=== PATIENT | female | born 1965 | race Caucasian/White ===

== ENCOUNTER 2020-09-05 15:07 | Outpatient (CLI) | payer OTHER, SELFPAY ==
--- NOTE | 2020-09-05 15:15 | MM_ITS ---
WS: [id number] BILATERAL DIGITAL SCREENING MAMMOGRAPHY WITH CAD CLINICAL INFORMATION: SCREENING HISTORY: Screening mammogram. No current complaints. COMPARISON: TECHNIQUE: Bilateral CC and MLO views. FINDINGS: The breasts are composed of heterogeneous fibroglandular density tissue, which can limit the detectio n of small underlying mass lesions. Long-standing stability of the dense breast tissue inner right br east with slight spiculation No suspicious mass, asymmetry, calcifications, or architectural distorti on. No evidence of malignancy. Punctate and lucent centered calcifications. MM/[place] [id number] IMPRESSION: BI-RADS: 2-Benign FOLLOW UP: 1 Year Follow-up Recommend return to annual screening mammography.
== END 2020-09-05 15:08 | disposition home or self-care (01) ==
LOC: RADSHAW 15:13
PROVIDERS: PCP Nurse Practitioner Family; Visit Provider Obstetrics & Gynecology
DX: Z12.31 Encounter for screening mammogram for malignant neoplasm of breast (principal)
CPT/HCPCS: 77067

== ENCOUNTER → 2021-08-24 15:28 | Outpatient (BNVA) | payer OTHER, SELFPAY | PROVIDERS: PCP Nurse Practitioner Family; Visit Provider Obstetrics & Gynecology | DX: Z12.4 Encounter for screening for malignant neoplasm of cervix (principal) | CPT/HCPCS: 87624 ==

== ENCOUNTER 2021-09-14 14:07 | Outpatient (CLI) | payer OTHER, SELFPAY ==
--- NOTE | 2021-09-14 14:18 | MM_ITS ---
WS: [id number] SCREENING DIGITAL MAMMOGRAM WITH CAD HISTORY: SCREENING COMPARISON: 09/05/2020, 07/15/2019 and 06/23/2018 Bilateral CC and MLO views submitted. Computer aided detection analyzed. Breast composition: The breasts are heterogeneously dense, which may obscure small masses. Area of ve ry subtle architectural distortion in the RIGHT breast at 1:00. Associated lucent centered calcificat ion also near the distortion. There has been mild architectural distortion on prior mammograms also b ut it appears more prominent today. MM/[place] [id number] IMPRESSION: BI-RADS: 0-Incomplete: Need additional imaging evaluation FOLLOW UP: Need Additional Imaging RIGHT breast: Spot compression views (CC and MLO). True ML. Ultrasound to follo w if abnormality persists.
== END 2021-09-14 14:08 | disposition home or self-care (01) ==
LOC: RADSHAW 14:15
PROVIDERS: PCP Nurse Practitioner Family; Visit Provider Nurse Practitioner Family
DX: Z12.31 Encounter for screening mammogram for malignant neoplasm of breast (principal)
CPT/HCPCS: 77067

== ENCOUNTER 2021-09-21 10:16 | Outpatient (CLI) | payer OTHER, SELFPAY ==
--- NOTE | 2021-09-21 10:30 | US_ITS ---
WS: [id number] ADDITIONAL VIEWS RIGHT BREAST RIGHT breast ultrasound, limited HISTORY: Inconclusive diagnostic mammogram. COMPARISON: 09/14/2021, 09/05/2020 and 07/15/2019 Compression views right CC and MLO projection. True ML also submitted. Focal area of architectural di stortion in the central calcifications persist in the anterior RIGHT breast near 12:00. This is an ar ea of increased density. Otherwise negative. RIGHT breast ultrasound, limited. Ultrasound is directed to the 12:00 axis. At 12:00 there is a hypoechoic irregular mass with posterio r shadowing. This mass is taller than it is wide and 1 cm from the nipple. Mass measures 0.7 x 1.2 x 1.0 cm. There is mild peripheral increased vascularity. No axillary adenopathy. US/US breast RT limited* [id number] IMPRESSION: BI-RADS: 5-Highly Suggestive of Malignancy FOLLOW-UP: Biopsy Recommended Ultrasound-guided biopsy recommended RIGHT breast mass at 12:00. Notified ELYSIA Syed at 09/21/2021 2:38 PM. Unable to speak to the nurse practitioner. Left message on the answering service.
--- NOTE | 2021-09-21 11:00 | MM_ITS ---
WS: [id number] ADDITIONAL VIEWS RIGHT BREAST RIGHT breast ultrasound, limited HISTORY: Inconclusive diagnostic mammogram. COMPARISON: 09/14/2021, 09/05/2020 and 07/15/2019 Compression views right CC and MLO projection. True ML also submitted. Focal area of architectural di stortion in the central calcifications persist in the anterior RIGHT breast near 12:00. This is an ar ea of increased density. Otherwise negative. RIGHT breast ultrasound, limited. Ultrasound is directed to the 12:00 axis. At 12:00 there is a hypoechoic irregular mass with posterio r shadowing. This mass is taller than it is wide and 1 cm from the nipple. Mass measures 0.7 x 1.2 x 1.0 cm. There is mild peripheral increased vascularity. No axillary adenopathy. MM/[place] [id number] IMPRESSION: BI-RADS: 5-Highly Suggestive of Malignancy FOLLOW-UP: Biopsy Recommended Ultrasound-guided biopsy recommended RIGHT breast mass at 12:00. Notified ELYSIA Syed at 09/21/2021 2:38 PM. Unable to speak to the nurse practitioner. Left message on the answering service.
== END 2021-09-21 10:17 | disposition home or self-care (01) ==
LOC: RAD 10:21
PROVIDERS: PCP Nurse Practitioner Family; Visit Provider Nurse Practitioner Family
DX: R92.8 Other abnormal and inconclusive findings on diagnostic imaging of breast (principal); N63.25 Unspecified lump in the left breast, overlapping quadrants
CPT/HCPCS: 76642; 77065

== ENCOUNTER 2021-10-15 12:55 | Outpatient (CLI) | payer OTHER, SELFPAY ==
--- NOTE | 2021-10-15 13:30 | US_ITS ---
WS: [id number] ULTRASOUND-GUIDED RIGHT BREAST BIOPSY CLINICAL INFORMATION: R92.8 - Other abnormal and inconclusive findings on diagn... FINDINGS: The procedure including risks, benefits, and complications were discussed with the patient who agreed to proceed. Using sterile technique patient was prepped and draped in the usual sterile fashion. Aft er 1% lidocaine utilizing real-time ultrasound guidance 5 14-gauge cores were obtained of the right b reast lesion at the 12 o'clock position. Subsequently a titanium clip was placed in the biopsy cavity . No immediate complications. Pathology demonstrates A. Breast, right, mass, ultrasound-guided biopsy: - INVASIVE DUCTAL CARCINOMA. - Beth Hauser grade 1 (score 3). - Breast prognostic profile has been performed and will be reported separately. US/[place] [id number] IMPRESSION: 1. Uncomplicated ultrasound-guided right breast biopsy. 2. The pathology demonstrates INVASIVE DUCTAL CARCINOMA. See pathology report for additional detail. 3. Recommend Breast surgery consultation for further evaluation. BI-RADS: 6-Known Biopsy-Proven Malignancy FOLLOW UP: Surgical Biopsy Recommended
[2021-10-22 14:35] LABS: Miscellaneous Test See Scanned Lab Rpt
== END 2021-10-15 12:56 | disposition home or self-care (01) ==
PROVIDERS: PCP Nurse Practitioner Family; Visit Provider Nurse Practitioner
DX: R92.8 Other abnormal and inconclusive findings on diagnostic imaging of breast (principal); N63.10 Unspecified lump in the right breast, unspecified quadrant; C50.911 Malignant neoplasm of unspecified site of right female breast
CPT/HCPCS: 19083; 88305; 88361; 88367; 88374

== ENCOUNTER 2021-10-22 14:37 | Outpatient (CLI) | payer OTHER, SELFPAY ==
--- NOTE | 2021-10-22 16:24 | ONC CON_ITS ---
Dr. Bonner New Patient Note Patient: Oneyda Saez Unit #: [id number]: [id number] Dicatated By: Megha Bonner M.D.Date of Visit: Oct 22, 2021 Onc MED New Patient/Consult Referring Physician: Dr. Adin Crenshaw M.D. History of Present Illness: Ms. Oneyda Saez, is a 56-year-old female with no significant past medical history, during her routine follow-up mammogram exam which was done on September 14, 2021, found to have a subtle architectural distortion in the right breast at 1 o'clock position, follow-up ultrasound right breast done on September 21, 2021 shows 1.2 x 1 x 0.7 cm mass at 12 o'clock position, 1 cm from the nipple, no axillary lymphadenopathy, patient underwent ultrasound-guided biopsy right breast mass on October 15, 2021 which confirmed invasive ductal carcinoma grade 1, ER 98% positive, [place] 100% positive, Ki-67 5%, HER2/alexandrea pending Patient denies any nipple discharge, denies any overlying skin changes, denies any right axillary lymphadenopathy, denies any new bony pains. Denies any weight loss, denies any headaches., No family history of breast cancer, no history of hormone supplement, menarche at age 17, menopause at age 52. Patient denies smoking or alcohol use Patient has 2 sons, and 2 sisters. Past Medical History: Ms. Choe medical history is unremarkable. Past Surgical History: Ms. Choe surgical/procedural history consists of breast biopsy and tubal ligation. Medications: Allergy Relief (5 mg) Tablet Oral daily, calcium Tablet Oral daily, Probiotic Capsule Oral, Vitamin B 12 Tablet Oral daily, Vitamin D Tablet Oral daily Allergies: Levaquin Social History: Ms. Saez is . Ms. Saez has never smoked. She has no history of drinking. Family History: Ms. Saez's father is alive. Review Of Symptoms: Review of Systems is not available for this patient. Vital Signs: Most recent vitals are not available for this patient. Performance Status: 0 - Fully active, able to carry on all predisease activities without restrictions. (ECOG) Physical Examination: ENMT - No mouth sores, no thrush, no jaundice, No right axillary lymphadenopathy, Respiratory - Lungs are clear to auscultation, Cardiovascular - Regular rate and rhythm of heart, Abdomen - Soft, bowel sounds present, Extremities - No visible edema. Lab/Imaging: Most recent lab results are not available for this patient. Impression: Invasive ductal carcinoma, grade 1 involving right breast per ultrasound guided biopsy of right breast done on October 15, 2021, ER 98%, [place] 100%, Ki-67 5%, HER2/alexandrea pending Clinical stage I, (T1, NX M0) Mammogram done on September 14, 2021 shows area of subtle architectural distortion in the right breast at 1:00 lesion Ultrasound right breast done on September 21, 2021 shows 0.7 x 1.2 x 1 cm mass at 12 o'clock position, 1 cm from the nipple in the right breast Plan: Discussed with patient regarding her disease status and treatment options, patient has already been referred to Dr. Cage, she is scheduled to see him on Friday. As per pathology report, patient has ER/NY strongly positive, low Ki-67 and HER2/alexandrea is pending, based on the size of tumor seen on ultrasound right breast, even her if HER2/alexandrea is positive, will recommend upfront lumpectomy with right axilla sentinel lymph node biopsy. And review the pathology. Although patient has no daughter and no family history of breast cancer, we will check her BRCA1 and BRCA2 as patient has 2 sisters, Patient return to clinic 1 week after right lumpectomy with sentinel lymph node biopsy, for further discussion Signed By: Megha Bonner M.D. <<Signature on File>>
== END 2021-10-22 14:38 | disposition home or self-care (01) ==
LOC: ONCMED 14:43
PROVIDERS: PCP Family Medicine; Visit Provider Internal Medicine Hematology & Oncology
DX: C50.211 Malignant neoplasm of upper-inner quadrant of right female breast (principal); Z17.0 Estrogen receptor positive status [ER+]
CPT/HCPCS: 99205

== ENCOUNTER 2021-11-12 11:39 | Day surgery (SDC) | payer OTHER, SELFPAY ==
[2021-11-09 10:14] VITALS: BMI 25.8
[2021-11-12] VITALS (7 sets, daily range): BP systolic 119–142; BP diastolic 62–73; PULSE 79–97; RESP 14–18; TEMP 36.2–36.7; O2SAT 97–99
--- NOTE | 2021-11-12 | US_ITS ---
WS: [id number] ULTRASOUND-GUIDED RIGHT BREAST NEEDLE LOCALIZATION HISTORY: R Breast Cancer Procedure, risks and complications were explained to the patient. Consent is obtained. Skin is cleansed with ChloraPrep and anesthetized with 1% buffered lidocaine. Needle and guidewire pl aced to the area of concern with no complications. Ultrasound guidance performed during the needle lo calization. Guidewire is left within the lesion. Guidewire secured and no complications encountered. Patient is being transported to the OR suite. Specimen radiograph is also reviewed. Hypoechoic mass is within the specimen. RECOMMENDATIONS: Follow-up with Dr. Cage and oncology. US/US breast surgical specimen IMPRESSION: 1. Uncomplicated needle localization RIGHT breast neoplasm at 12:00. 2. Specimen contains the mass. PATHOLOGY RESULTS: Invasive carcinoma. Single focus of invasive carcinoma. No l ymphovascular invasion identified. Please see entire histopathological report f or further details.
--- NOTE | 2021-11-12 12:11 | NM_ITS ---
WS: [id number] NUCLEAR MEDICINE SENTINEL LYMPH NODE IMAGING HISTORY: R Breast Cancer COMPARISON: 10/15/2021, 09/05/2020 TECHNIQUE: The patient was injected with 0.94 mCi of Technetium 99 ultra filtered sulfur colloid. Inj ection is intradermal in a periareolar location. Four aliquots are used. Uncomplicated intradermal injection. NM/NM sentinel node inject [id number] IMPRESSION: RIGHT breast sentinel lymph node injection.
--- NOTE | 2021-11-12 12:11 | US_ITS ---
WS: [id number] ULTRASOUND-GUIDED RIGHT BREAST NEEDLE LOCALIZATION HISTORY: R Breast Cancer Procedure, risks and complications were explained to the patient. Consent is obtained. Skin is cleansed with ChloraPrep and anesthetized with 1% buffered lidocaine. Needle and guidewire pl aced to the area of concern with no complications. Ultrasound guidance performed during the needle lo calization. Guidewire is left within the lesion. Guidewire secured and no complications encountered. Patient is being transported to the OR suite. Specimen radiograph is also reviewed. Hypoechoic mass is within the specimen. RECOMMENDATIONS: Follow-up with Dr. Cage and oncology. US/[place] [id number] IMPRESSION: 1. Uncomplicated needle localization RIGHT breast neoplasm at 12:00. 2. Specimen contains the mass. PATHOLOGY RESULTS: Invasive carcinoma. Single focus of invasive carcinoma. No l ymphovascular invasion identified. Please see entire histopathological report f or further details.
[2021-11-12] MEDS: sodium chloride 0.9% 1,000 ML 30 ML IV (14:05)
[2021-11-12] MEDS: scopolamine 1.5 Patch 1 PATCH TRANSDERMA (14:07)
--- NOTE | 2021-11-12 14:14 | ANES.PREANE2 ---
Pre-Anesthetic Assessment Height/Weight: Height 1.73 m Weight 77.111 kg Operation Date: 11/12/21 15:00 Proposed Procedures p Breast Biopsy Needle Localization(Right) - Edinson Cage MD s Sentinal Lymph Node Biopsy(Right) - Edinson Cage MD s Right Breast Lumpectomy(Right) - Edinson Cage MD Familial anesthetic complications: None Last intake: Intake Last Liquid Date 11/12/21 Last Liquid Time 08:00 Last Solid Date 11/11/21 Last Solid Time 20:00 Social No alcohol and No tobacco Exam alert, oriented x 3, clear to auscultation bilaterally and regular rate & rhythm Airway Submandibular: within normal limits Cervical ROM: within normal limits Mallampati: Class I Dentition: full History/ROS No significant history except as noted Anesthetic Plan ASA status: 1 Anesthesia: General Risk of > 500 ml blood loss (7ml/kg in children): No Medications/Allergies Home Medications Medication Instructions Recorded Confirmed Last Taken Type lactobacillus combination no.9 4 4,000 mmu cells PO DAILY 10/19/20 11/12/21 1 Day Ago History billion cell capsule (Adult 50 ~11/11/21 Plus Probiotic) levocetirizine 5 mg tablet (Xyzal) 5 mg PO DAILY 10/19/20 11/12/21 1 Day Ago History ~11/11/21 triamcinolone acetonide 0.1 % 1 applic TOPICAL BID #80 g 01/18/21 11/12/21 1 Day Ago Rx topical ointment ~11/11/21 calcium carbonate 500 mg calcium 500 mg PO DAILY 08/24/21 11/12/21 1 Day Ago History (1,250 mg) tablet (Calcium 500) ~11/11/21 Allergies Allergy/AdvReac Type Severity Reaction Status Date / Time levofloxacin [From Levaquin] Allergy Rash Verified 11/12/21 12:01 [facility] Anesthesia Medical History (Updated 09/21/21 @ 15:05 by ELYSIA Leach) Seasonal allergies Surgical History (Updated 08/25/21 @ 12:37 by Lenore Seals MD) H/O foot surgery left foot bunion removal--2009 History of D&C Family History Other CAD (coronary artery disease) Cancer Social History Smoking and tobacco status: never smoked Alcohol intake: current Alcohol intake frequency: few times a month Data Anesthesia Cardiac Studies: No Data to Display
--- NOTE | 2021-11-12 14:15 | W.PM.OPSUD ---
Surgery/Procedure H&P Update DATE OF PROCEDURE: November 12, 2021 DATE H&P PERFORMED: 10/30/21 H&P UPDATE INFORMATION: No changes to prior documentation PREOP DIAGNOSIS: Right breast cancer. PLANNED PROCEDURE: Operation Date: 11/12/21 15:00 Proposed Procedures p Breast Biopsy Needle Localization(Right) - Edinson Cage MD s Sentinal Lymph Node Biopsy(Right) - Edinson Cage MD s Right Breast Lumpectomy(Right) - Edinson Cage MD
--- NOTE | 2021-11-12 15:55 | P.OP_ITS ---
Operative Report Date of procedure: November 12, 2021 Pre-op diagnosis: Preop Diagnosis Right breast cancer. Post-op diagnosis: Same. Procedure done: 1. Right breast lumpectomy following preoperative needle localization. 2. Right axillary sentinel lymph node biopsy. Pathology: 1. Right breast lumpectomy specimen. Long suture anteriorly, short suture medially. 2. Right axillary sentinel lymph nodes. Suture on primary lymph node. Estimated blood loss: General anesthesia by laryngeal mask airway. Complications: None. Procedure: The patient was brought to the operating room and was placed in a supine position on the operating room table. The patient had undergone needle localiz ation and radioactive tracer injection in radiology preoperatively. General anesthesia was induced by means of a laryngeal mask airway. The right breast and axilla were prepped and draped in a sterile fashion, taking care not to disturb the localization wire which had been placed in radiology preoperatively. A combination of 1% lidocaine and 0.5% bupivacaine with 1-200,000 parts epinephrine was used for local anesthesia throughout the procedures. The gamma probe was first used to find the hot spot in the axilla. A curvilinear incision was carried out over the hot spot in the lower anterior axilla. Cautery and blunt dissection were used to traverse the subcutaneous tissue and the axilla was entered. Using a combination of inspection and the gamma probe, the hot lymph node was found and was completely removed using blunt dissection and cautery. The lymph node registered counts of 85 on the field. This lymph node was marked with a 4-0 Vicryl suture. The patient had 2 adjacent lymph nodes in the same small package that also registered counts of 25 and 45 respectively. Further inspection of the axilla with the gamma probe revealed counts around 20 just posterior to the previous dissection. A small fourth lymph node was found and was removed. Remaining counts in the axilla were all 5 or less. The wound was irrigated with saline. A suture of 3-0 Vicryl was used to bring the deeper tissue together and the skin was eventually approximated using a running subcuticular suture of 4-0 Vicryl. Attention was then directed to the breast. The patient had a localization wire entering the lateral aspect just above the areola. A circumareolar incision was carried out around the upper portion of the areola. A combination of cautery and sharp dissection were used to undermine the skin. The localization wire was brought into the incision. A combination of sharp dissection and cautery were then used to remove all of the tissue around the tip of the wire. The patient had quite a bit of fibrous appearing tissue in the region, making it difficult to know exactly where to dissect by palpation After the specimen had almost been completely removed, it was marked with a long suture anteriorly and a short suture medially. The wound was irrigated with saline. No other obvious abnormalities were seen or palpated anywhere in the wound. As mentioned, the patient had a lot of fibrous tissue inferiorly and somewhat laterally. The wound was irrigated with saline. The skin was reapproximated using a running subcuticular suture of 4-0 Vicryl. Benzoin and Steri-Strips were placed over the incisions and a sterile bandage followed. The patient was taken to the recovery area in stable condition postoperatively.
[2021-11-12] MEDS: HYDROcodone-acetaminophen 5-325 mg Tablet 1 TAB PO (16:46)
--- NOTE | 2021-11-12 16:48 | ANE.PACU2 ---
Inpatient post-anesthesia follow up: Airway intact: Yes Vital signs: Temperature 97.2 F Pulse Rate 82 Respiratory Rate 16 Blood Pressure 142/73 Pulse Oximetry 99 Oxygen Delivery Me thod Room Air Oxygen Flow Rate Fraction of Inspir ed Oxygen Hydration adequate: Yes Nausea and vomiting: Yes Pain level: 1 Mental status: Baseline
== END 2021-11-12 17:07 | disposition home or self-care (01) ==
PROVIDERS: PCP Family Medicine; Visit Provider Surgery
PROC: (CPT 19301; principal; 2021-11-12 15:00)
PROC: (CPT 19301; 2021-11-12 15:00)
PROC: (CPT 19301; 2021-11-12 15:00)
DX: C50.211 Malignant neoplasm of upper-inner quadrant of right female breast (principal)
CPT/HCPCS: 19301; 38525; 19285; 38792; 88307; A9541; C1889; J0690; J1100; J1200; J2405; J2704; J3010; J3490; J7030

== ENCOUNTER 2021-11-27 12:56 | Outpatient (CLI) | payer OTHER, SELFPAY ==
[2021-11-27 13:41] LABS: Basophils % 0.5 %; Eosinophils # 0.4 10^3/uL (0.0-0.8); Eosinophils % 7.1 %; Hematocrit 41.6 % (37.0-47.0); Hemoglobin 13.6 g/dL (11.5-15.3); Lymphocytes # 1.6 10^3/uL (0.8-4.8); Lymphocytes % 29.8 %; Mean Corpuscular HGB Conc 32.7 g/dL (30.0-36.0); Mean Corpuscular Hemoglobin 30.4 pg (28.0-34.0); Mean Corpuscular Volume 92.9 fl (81-99); Mean Platelet Volume 9.7 fL (7.4-10.4); Monocytes # 0.6 10^3/uL (0.2-0.9); Monocytes % 11.1 %; Neutrophils # 2.81 10^3/uL (1.8-7.7); Neutrophils % 51.1 %; Nucleated Red Blood Cells % 0 %; Platelet Count 271 10^3/cmm (130-400); Red Blood Count 4.48 10^6/uL (4.1-5.3); Red Cell Distribution Width 12.3 % (12.1-15.1); White Blood Count 5.5 10^3/uL (4.0-10.0)
[2021-11-27 14:10] LABS: Alanine Aminotransferase 34 U/L (0-33); Albumin Level 4.7 g/dL (3.5-5.2); Alkaline Phosphatase 129 IU/L (35-105); Aspartate Amino Transferase 33 U/L (0-32); Blood Urea Nitrogen 10 mg/dL (6-20); Calcium 9.7 mg/dL (8.5-10.5); Carbon Dioxide 27 mmol/L (22-29); Chloride 102 mmol/L (98-107); Globulin 2.7 g/dL (1.3-4.6); Glomerular Filtration Rate 74.7 mL/min (90-130); Glucose 110 mg/dL (65-115); Osmolality Calculated 290 mOsm/kg (285-295); Sodium 140 mmol/L (136-145); Total Bilirubin 0.3 mg/dL (0.15-1.2); Total Protein 7.4 g/dL (6.6-8.7)
[2021-11-27 14:14] LABS: Slide Review Slide Review Perform
== END 2021-11-27 12:57 | disposition home or self-care (01) ==
PROVIDERS: PCP Family Medicine; Visit Provider Internal Medicine Hematology & Oncology
DX: C50.911 Malignant neoplasm of unspecified site of right female breast (principal); Z79.899 Other long term (current) drug therapy
CPT/HCPCS: 36415; 80053; 85025

== ENCOUNTER 2021-11-28 07:58 | Outpatient (CLI) | payer OTHER, SELFPAY ==
[2021-11-28 11:02] LABS: Follicle Stimulating Hormone 51.5 mIU/mL; Luteinizing Hormone 30.7 mIU/mL (0.5-41.7); Progesterone 0.096 ng/mL
--- NOTE | 2021-11-28 11:18 | ONC FU_ITS ---
Dr. Bonner follow up note Patient: Oneyda Saez Unit #: [id number]: [id number] Dicatated By: Megha Bonner M.D.Date of Visit:Nov 28, 2021 Onc Med Follow-up/Prog Note History of Present Illness: Ms. Oneyda Saez, is a 56-year-old female with no significant past medical history, during her routine follow-up mammogram exam which was done on September 14, 2021, found to have a subtle architectural distortion in the right breast at 1 o'clock position, follow-up ultrasound right breast done on September 21, 2021 shows 1.2 x 1 x 0.7 cm mass at 12 o'clock position, 1 cm from the nipple, no axillary lymphadenopathy, patient underwent ultrasound-guided biopsy right breast mass on October 15, 2021 which confirmed invasive ductal carcinoma grade 1, ER 98% positive, [place] 100% positive, Ki-67 5%, HER2/alexandrea Negative, underwent right breast lumpectomy and right axillary sentinel lymph node biopsy on November 12, 2021, final pathology report showed grade 1, 0.92 cm invasive carcinoma with clear surgical margin, no DCIS identified no lymphovascular invasion seen, T1b, 0/3 sentinel lymph nodes positive for metastatic disease, N0, ER 98% positive, PA 100% positive, Ki-67 5% positive and HER-2/alexandrea negative Patient denies any nipple discharge, denies any overlying skin changes, denies any right axillary lymphadenopathy, denies any new bony pains. Denies any weight loss, denies any headaches., No family history of breast cancer, no history of hormone supplement, menarche at age 17, menopause at age 52. Patient denies smoking or alcohol use Patient has 2 sons, and 2 sisters. Came for follow-up, denies any specific complaints, no fever chills, no nausea or vomiting, no diarrhea or constipation, patient recently underwent right breast lumpectomy, right axillary sentinel lymph node biopsy, now healing well, complaining of mild discomfort in right axilla especially when trying to raise her arm up. But no discharge from surgical site. Medications: Allergy Relief (5 mg) Tablet Oral daily, calcium Tablet Oral daily, Probiotic Capsule Oral, Vitamin B 12 Tablet Oral daily, Vitamin D Tablet Oral daily Allergies: Levaquin Review of Systems: Review of Systems is not available for this patient. Vital Signs: Performed on Nov 28, 2021 09:49 Weight - 174.8 lbs (HIGH) BSA - 0.00 sq.m BMI - 0.00 Temperature - 99.0 F (HIGH) Pulse - 70 /min Respiration - 18 /min BP - 127/81 mm(hg) O2 Sat - 99 % Pain - 0 Fatigue - 2 Performance Status: 0 - Fully active, able to carry on all predisease activities without restrictions. (ECOG) Physical Examination: Respiratory - Lungs are clear to auscultation, Cardiovascular - Regular rate and rhythm of heart, Gastrointestinal - Soft, bowel sounds present, Extremities - No visible edema. Lab/Imaging: Most recent lab results are not available for this patient. Impression: T1b, N0, MX invasive carcinoma no special type, grade 1 per right breast lumpectomy/sentinel lymph node biopsy done on November 12, 2021, final pathology report showed 0.92cm, grade 1, clear surgical margins, no lymphovascular invasion seen and 0/3 sentinel lymph node positive for metastatic disease, N0, ER 98% positive PA 100% positive Ki-67 5%, HER-2/alexandrea negative, pathological stage T1b, N0, MX stage IA Invasive ductal carcinoma, grade 1 involving right breast per ultrasound guided biopsy of right breast done on October 15, 2021, ER 98%, PA 100%, Ki-67 5%, HER2/alexandrea pending Mammogram done on September 14, 2021 shows area of subtle architectural distortion in the right breast at 1:00 lesion Ultrasound right breast done on September 21, 2021 shows 0.7 x 1.2 x 1 cm mass at 12 o'clock position, 1 cm from the nipple in the right breast Plan: Discussed with patient regarding her labs white blood count 5.5 hemoglobin 13.6 hematocrit 41.6 platelets 271,000 CMP within normal limits except ALT 34 AST 33 and alk phos 129 and her final pathology report which showed subcentimeter, grade 1, invasive carcinoma involving right breast, with clear surgical margin, 0 out of 3 lymph node positive for metastatic disease, ER/PA positive HER-2/alexandrea negative At this point, will consider prognostic testing with Oncotype DX, if low, will consider hormonal therapy for 5 years, as per patient she had her last menstrual period at age 52, we will consider hormonal profile e.g. FSH, LH, progesterone level, estradiol level, to confirm menopause status, if menopause is confirmed, will consider aromatase inhibitor, Arimidex 1 mg p.o. daily for 5 years on the other hand if she is in perimenopause then will consider tamoxifen. We will also refer her to radiation oncology for evaluation for postlumpectomy radiation therapy Patient return to clinic in 2 weeks, but that time will have her Oncotype DX report as well as hormonal status report to discuss. Signed By: Megha Bonner M.D. <<Signature on File>>
== END 2021-11-28 07:59 | disposition home or self-care (01) ==
PROVIDERS: PCP Family Medicine; Visit Provider Internal Medicine Hematology & Oncology
DX: C50.211 Malignant neoplasm of upper-inner quadrant of right female breast (principal)
CPT/HCPCS: 82670; 83001; 83002; 84144; 99214

== ENCOUNTER 2021-12-13 07:54 | Outpatient (CLI) | payer OTHER, SELFPAY ==
[2021-12-13 08:35] LABS: Basophils % 0.7 %; Eosinophils # 0.2 10^3/uL (0.0-0.8); Eosinophils % 3.5 %; Hemoglobin 13.7 g/dL (11.5-15.3); Lymphocytes # 1.3 10^3/uL (0.8-4.8); Lymphocytes % 30.1 %; Mean Corpuscular HGB Conc 32.6 g/dL (30.0-36.0); Mean Corpuscular Volume 91.9 fl (81-99); Monocytes # 0.5 10^3/uL (0.2-0.9); Monocytes % 12.4 %; Neutrophils # 2.28 10^3/uL (1.8-7.7); Neutrophils % 53.3 %; Nucleated Red Blood Cells % 0 %; Platelet Count 252 10^3/cmm (130-400); Red Blood Count 4.57 10^6/uL (4.1-5.3); Red Cell Distribution Width 12.5 % (12.1-15.1); White Blood Count 4.3 10^3/uL (4.0-10.0)
[2021-12-13 08:57] LABS: Alanine Aminotransferase 31 U/L (0-33); Albumin Level 4.8 g/dL (3.5-5.2); Alkaline Phosphatase 112 IU/L (35-105); Aspartate Amino Transferase 33 U/L (0-32); Blood Urea Nitrogen 14 mg/dL (6-20); Calcium 10.1 mg/dL (8.5-10.5); Carbon Dioxide 28 mmol/L (22-29); Chloride 102 mmol/L (98-107); Globulin 2.7 g/dL (1.3-4.6); Glomerular Filtration Rate 65.2 mL/min (90-130); Glucose 95 mg/dL (65-115); Osmolality Calculated 292 mOsm/kg (285-295); Sodium 141 mmol/L (136-145); Total Bilirubin 0.3 mg/dL (0.15-1.2); Total Protein 7.5 g/dL (6.6-8.7)
--- NOTE | 2021-12-14 12:13 | ONC FU_ITS ---
Dr. Bonner follow up note Patient: Oneyda Saez Unit #: [id number]: 1965 Dicatated By: Megha Bonner M.D.Date of Visit:Dec 13, 2021 Onc Med Follow-up/Prog Note History of Present Illness: Ms. Oneyda Saez, is a 56-year-old female with no significant past medical history, during her routine follow-up mammogram exam which was done on September 14, 2021, found to have a subtle architectural distortion in the right breast at 1 o'clock position, follow-up ultrasound right breast done on September 21, 2021 shows 1.2 x 1 x 0.7 cm mass at 12 o'clock position, 1 cm from the nipple, no axillary lymphadenopathy, patient underwent ultrasound-guided biopsy right breast mass on October 15, 2021 which confirmed invasive ductal carcinoma grade 1, ER 98% positive, WI 100% positive, Ki-67 5%, HER2/alexandrea Negative, underwent right breast lumpectomy and right axillary sentinel lymph node biopsy on November 12, 2021, final pathology report showed grade 1, 0.92 cm invasive carcinoma with clear surgical margin, no DCIS identified no lymphovascular invasion seen, T1b, 0/3 sentinel lymph nodes positive for metastatic disease, N0, ER 98% positive, WI 100% positive, Ki-67 5% positive and HER-2/alexandrea negative, Oncotype DX score checked on December 06, 2021 showed recurrence score 19, means low risk and no additional benefit from chemotherapy and risk of distant recurrence at 9 years with hormonal therapy is about 6%. On December 13, 2021, Patient was started on Arimidex 1 mg p.o. daily, for 5 years patient is already on vitamin D and calcium supplement, Patient denies any nipple discharge, denies any overlying skin changes, denies any right axillary lymphadenopathy, denies any new bony pains. Denies any weight loss, denies any headaches., No family history of breast cancer, no history of hormone supplement, menarche at age 17, menopause at age 52. Patient denies smoking or alcohol use Patient has 2 sons, and 2 sisters. Came for follow-up, denies any specific complaints except mild discomfort in her right axilla, as she is trying to stretch it as much as possible. No fever chills, no nausea or vomiting, no diarrhea or constipation, Medications: Allergy Relief (5 mg) Tablet Oral daily, calcium Tablet Oral daily, Nasacort Allergy 24HR (55 mcg/act) Aerosol Nasal daily PRN, Probiotic Capsule Oral, Vitamin B 12 Tablet Oral daily, Vitamin D Tablet Oral daily Allergies: Levaquin Review of Systems: Review of Systems is not available for this patient. Vital Signs: Performed on Dec 13, 2021 11:01 Weight - 174.4 lbs (LOW) BSA - 0.00 sq.m BMI - 0.00 Temperature - 97.6 F (LOW) Pulse - 82 /min Respiration - 16 /min BP - 127/76 mm(hg) O2 Sat - 99 % Pain - 0 Fatigue - 3 Performance Status: 0 - Fully active, able to carry on all predisease activities without restrictions. (ECOG) Physical Examination: Respiratory - Lungs are clear to auscultation, Cardiovascular - Regular rate and rhythm of heart, Gastrointestinal - Soft, bowel sounds present, Extremities - No visible edema. Lab/Imaging: Most recent lab results are not available for this patient. Impression: T1b, N0, MX invasive carcinoma no special type, grade 1 per right breast lumpectomy/sentinel lymph node biopsy done on November 12, 2021, final pathology report showed 0.92cm, grade 1, clear surgical margins, no lymphovascular invasion seen and 0/3 sentinel lymph node positive for metastatic disease, N0, ER 98% positive WI 100% positive Ki-67 5%, HER-2/alexandrea negative, pathological stage T1b, N0, MX stage IA Oncotype DX test done on December 06, 2021 showed recurrence score 19, no additional benefit from chemotherapy, risk of distant metastatic disease at 9-year with hormone therapy is about 6% FSH 51.5, LH 30.7, progesterone 0.096, estradiol 5, all in postmenopausal range, Started on Arimidex 1 mg p.o. daily for 5 years along with vitamin D and calcium supplement on December 13, 2021 Invasive ductal carcinoma, grade 1 involving right breast per ultrasound guided biopsy of right breast done on October 15, 2021, ER 98%, WI 100%, Ki-67 5%, HER2/alexandrea pending Mammogram done on September 14, 2021 shows area of subtle architectural distortion in the right breast at 1:00 lesion Ultrasound right breast done on September 21, 2021 shows 0.7 x 1.2 x 1 cm mass at 12 o'clock position, 1 cm from the nipple in the right breast Plan: Discussed with patient regarding her labs white blood count 4.3 hemoglobin 13.7 hematocrit 42 platelets 252,000 CMP within normal limits Oncotype DX test done on December 06, 2021 showed recurrence score 19, no additional benefit from chemotherapy, risk of distant metastatic disease at 9-year with hormone therapy is about 6% Clinically, patient doing well with no new signs symptoms, her hormonal status has confirmed postmenopausal status and her Oncotype DX score came back low so no benefit of adjuvant chemotherapy, so we will start her on Arimidex 1 mg p.o. daily for 5 years, patient already on vitamin D and calcium supplement and she will return to clinic in 1 month for follow-up to ensure treatment tolerance All the side effect possible benefits with Arimidex including but not limited to, hot flashes, mood swings, musculoskeletal discomfort, bone demineralization, were mentioned, further teaching will be done by chemotherapy nurse. We will also refer her to radiation oncology for postlumpectomy radiation therapy. Signed By: Megha Bonner M.D. <<Signature on File>>
== END 2021-12-13 07:55 | disposition home or self-care (01) ==
PROVIDERS: PCP Family Medicine; Visit Provider Internal Medicine Hematology & Oncology
DX: C50.911 Malignant neoplasm of unspecified site of right female breast (principal); Z17.0 Estrogen receptor positive status [ER+]
CPT/HCPCS: 36415; 80053; 85025; 99214

== ENCOUNTER 2021-12-19 11:02 | Outpatient (CLI) | payer OTHER, SELFPAY ==
--- NOTE | 2021-12-19 12:26 | N.ONRAD NP_ITS ---
Radiation Oncology New Patient Visit Patient: Oneyda Saez MR#: [id number] : 1965> Age: 56> Sex: Female> Dictated by: Dr. Nikolas Van Date of Service: 12/19/2021 Referring Physician(s) : Megha Bonner Diagnosis: C50.811 - malignant neoplasm of overlapping sites of right female breast, Diagnosed 10/22/2021 (active). Breast, right, invasive ductal carcinoma, grade 1, ER 98%, MT 100%, Ki-67 5%, HER-2 negative, Oncotype DX score 19, stage T1b N0M0, margins negative by 2 mm with no DCIS or lymphovascular invasion. Radiotherapy to date: Summary > No prior radiation therapy. Chief Complaint / History of Present Illness: Mrs. Saez is a 56-year-old lady who underwent screening mammography 09/14/2021. She was noted to have subtle architectural distortion in the right breast at 1:00. On September 21, she had an ultrasound which showed a 1.2 x 1 x 0.7 cm mass in the 12 o'clock position. On October 15, 2021 she underwent an ultrasound-guided biopsy which revealed an invasive ductal carcinoma, grade 1. She chose breast conservation and underwent a lumpectomy and right axillary sentinel node biopsy on 11/12/2021. The final pathology showed grade 1 invasive ductal carcinoma measuring 0.92 cm. There was no DCIS or lymphovascular invasion. 3 of 3 sentinel nodes were negative. All surgical margins were negative. The closest margin was 2 mm inferiorly. Mrs. Saez is healed well from surgery. She has no complaints regarding her breast. There is been no change in her performance status. She underwent Oncotype DX testing. The recurrence score is 19. It is not felt that she will benefit from chemotherapy. She has been started on Arimidex 1 mg daily. She is having a few hot flashes but otherwise tolerating the medication well. Current Medications: Allergy Relief, anastrozole, calcium, nasacort Allergy 24HR, probiotic, vitamin B 12, vitamin D. Allergies: Levaquin. Medical History: No history of collagen vascular disease. No previous radiation therapy. Surgical History: Breast biopsy and tubal ligation. Family History: Father is alive. Mother has experienced osteoporosis. Social History: Last screened on 12/13/2021 - Never smoked. Last screened on 12/13/2021 - Never drank. Current Complaints / Review of Systems: . Vital Signs: Performed on 12/19/2021 11:15 AM BMI - 26.426 kg/m2 (high), Height - 68 in, Weight - 173.8 lbs, Temperature - 96.6 f, Pulse - 69 /min, Respiration - 18 /min, O2 Sat - 99 %, Pain - 0, Fatigue - 0 and BP - 124/ 76 mm(hg). Physical Exam: Alert, oriented, no acute distress. No cervical, supraclavicular, axillary lymphadenopathy. The right axillary incision is well-healed and nontender. Heart: Regular rhythm. No murmur, gallop, or rub. Lungs: Clear to percussion. On auscultation no rales, rhonchi, or wheezes. Breasts: Left breast is normal in appearance, nontender, and free of masses. The right breast has an excellent cosmetic result. She has a supra areolar incision which follows the contour of the areola. There is very slight edema but no erythema, tenderness, or other evidence of infection. There is no significant induration in the tumor bed. No mass palpated in this area or elsewhere in the breast. Abdomen: No distention. No organomegaly, mass, or tenderness. Musculoskeletal: No bone tenderness. She did mention an area just beneath and lateral to the right scapula where she has noticed some discomfort the past few days. Careful examination of the area did not reveal any tenderness or other abnormality. Normal gait. Performance Status: Karnofsky 100 Pathology: Primary, c50.811 - malignant neoplasm of overlapping sites of right female breast, Diagnosed 10/22/2021 (active). Lab: Imaging: See HPI Impression: Ms. Saez has undergone a successful lumpectomy for a mammographically detected low-grade invasive ductal carcinoma with a negative sentinel node biopsy and favorable prognostic indicators. She has been started on Arimidex. She is a candidate for breast radiation following lumpectomy. I discussed a 3-week course of hypofractionated radiation to the breast. I reviewed side effects and possible complications. I told her in view of all of the favorable prognostic indicators that I do not feel a boost to the tumor bed is necessary. However, I explained that Dr. Forde will make that final decision. Her young age is one factor that favors a boost. We discussed testing for the breast cancer gene. She is over 50 and has no family history of breast cancer or ovarian cancer on either side. Women in her family have tended to live to an advanced age, and as stated, there is no history of breast or ovarian cancer. I told her I do not feel that it is necessary to test her. Plan: Simulation will be scheduled. Signed by: 12/19/2021 12:24:50 PM <<Signature on File>> Time spent with patient: CPT Code: CPT Code:
== END 2021-12-19 11:03 | disposition home or self-care (01) ==
PROVIDERS: PCP Family Medicine; Visit Provider Specialist
DX: C50.811 Malignant neoplasm of overlapping sites of right female breast (principal); Z79.899 Other long term (current) drug therapy
CPT/HCPCS: 99205

== ENCOUNTER 2022-01-03 06:47 | Outpatient (RCR) | payer OTHER, SELFPAY ==
--- NOTE | 2021-12-25 | CT_ITS ---
Radiation Therapy Planning CT images; total exam DLP: 453.33 mGy-cm MTDD
--- NOTE | 2021-12-31 11:14 | ONCRAD TMN_ITS ---
Radiation Oncology Treatment Management Note Patient Name: Oneyda Saez Date of : 1965 Date of Service: 12/31/2021 Attending Physician: Alessandro Forde M.D. Oneyda Saez is a 56 year-old white female diagnosed with a pathologic stage IA (T1bN0) ductal carcinoma of the central portion of the right breast. A partial mastectomy was performed Edinson Cage M.D. on November 12, 2021. The pathology report described a 9 mm, grade 1 ductal carcinoma. A sentinel lymph node biopsy harvested three benign lymph nodes. The breast prognostic profile was positive for estrogen receptor (98%) and progesterone receptor (100%) and negative for HER-2. The Ki-67 was 5%. She has received 8 Gy of a prescribed 40 Gy delivered in the prone disposition with a 3D conformal radiotherapy plan utilizing opposed tangential portal bass. Upon review of systems, she denied any breast complaints to radiotherapy. On physical examination, the patient weighed 175 lbs. Her temperature was 98.2 ???F and the blood pressure was 137/75 mmHg. Her pulse was 68 bpm and her respiratory rate was 18. There was no erythema within the treatment bass of the right breast. Continue right breast radiotherapy as prescribed. Signed by: Dr. Alessandro Forde 12/31/2021 11:12:26 AM
== END 2022-01-03 23:59 | disposition home or self-care (01) ==
LOC: ONCMED 06:47
PROVIDERS: PCP Family Medicine; Visit Provider Radiology Radiation Oncology
DX: Z51.0 Encounter for antineoplastic radiation therapy (principal); C50.111 Malignant neoplasm of central portion of right female breast; Z17.0 Estrogen receptor positive status [ER+]; Z79.899 Other long term (current) drug therapy
CPT/HCPCS: 77014; 77263; 77280; 77295; 77300; 77332; 77334; 77336; 77387; 77412; 77427; 77470

== ENCOUNTER 2022-02-01 06:39 | Outpatient (RCR) | payer OTHER, SELFPAY ==
--- NOTE | 2022-01-07 11:16 | ONCRAD TMN_ITS ---
Radiation Oncology Treatment Management Note Patient Name: Oneyda Saez Date of : 1965 Date of Service: 01/07/2022 Attending Physician: Alessandro Forde M.D. Oneyda Saez is a 56 year-old white female diagnosed with a pathologic stage IA (T1bN0) ductal carcinoma of the central portion of the right breast. A partial mastectomy was performed Edinson Cage M.D. on November 12, 2021. The pathology report described a 9 mm, grade 1 ductal carcinoma. A sentinel lymph node biopsy harvested three benign lymph nodes. The breast prognostic profile was positive for estrogen receptor (98%) and progesterone receptor (100%) and negative for HER-2. The Ki-67 was 5%. She has received 21.3 Gy of a prescribed 40 Gy delivered in the prone position with a 3D conformal radiotherapy plan utilizing opposed tangential portal bass. Upon review of systems, she denied any breast complaints to radiotherapy. On physical examination, the patient weighed 177 lbs. Her temperature was 96.2 ???F and the blood pressure was 126/82 mmHg. Her pulse was 64 bpm and the respiratory rate was 18. There was no erythema within the treatment bass of the right breast. Continue right breast radiotherapy as planned. Signed by: Dr. Alessandro Forde 01/07/2022 11:15:12 AM
--- NOTE | 2022-01-14 11:05 | ONCRAD TMN_ITS ---
Radiation Oncology Treatment Management Note Patient Name: Oneyda Saez Date of : 1965 Date of Service: 01/14/2022 Attending Physician: Alessandro Forde M.D. Oneyda Saez is a 56 year-old white female diagnosed with a pathologic stage IA (T1bN0) ductal carcinoma of the central portion of the right breast. A partial mastectomy was performed Edinson Cage M.D. on November 12, 2021. The pathology report described a 9 mm, grade 1 ductal carcinoma. A sentinel lymph node biopsy harvested three benign lymph nodes. The breast prognostic profile was positive for estrogen receptor (98%) and progesterone receptor (100%) and negative for HER-2. The Ki-67 was 5%. She has received 34.7 Gy of a prescribed 40 Gy delivered in the prone position with a 3D conformal radiotherapy plan utilizing opposed tangential portal bass. Upon review of systems, she reported itching. On physical examination, the patient weighed 174 lbs. Her temperature was 96.8 ???F and the blood pressure was 127/73 mmHg. Her pulse was 65 bpm and the respiratory rate was 20. There was no erythema within the treatment bass of the right breast. Continue right breast radiotherapy as prescribed. Hydrocortisone 1% was recommended for itching. Signed by: Dr. Alessandro Forde 01/14/2022 11:03:46 AM
--- NOTE | 2022-01-16 13:47 | N.ONRD TS_ITS ---
Radiation OncologyTreatment Summary Patient Name: Oneyda Saez Date of : 1965 Date of Service: 01/16/2022 Attending Physician: Alessandro Forde M.D. Oneyda Saez has completed adjuvant breast radiotherapy for the management of a pathologic stage IA (T1bN0) ductal carcinoma of the central portion of the right breast. A partial mastectomy was performed Edinson Cage M.D. on November 12, 2021. The pathology report described a 9 mm, grade 1 ductal carcinoma. A sentinel lymph node biopsy harvested three benign lymph nodes. The breast prognostic profile was positive for estrogen receptor (98%) and progesterone receptor (100%) and negative for HER-2. The Ki-67 was 5%. Daily radiotherapy was administered between the dates of December 27, 2021 through January 162021. A prescribed dose of 40 Gy was delivered in 15 fractions encompassing 20 elapsed days. The right breast was treated with a 3-dimensional conformal radiotherapy plan in the prone position applying an opposed tangential portal field design. The medial tangential field utilized a 246??? gantry angle with a collimator angle of 90???. The field size measured 7.5 cm x 6.4 cm within the X-direction and 5.5 cm x 6.4 cm within the Y-direction. The SSD measured 94.9 cm with the field delivering 148 monitor units. A photon energy of 15 MV was prescribed. The lateral tangential field employed a gantry angle of 64??? with a collimator angle of 90???. The field size measured 7.5 cm x 6.4 cm within X-direction and 6.4 cm x 5.5 cm within the Y-direction. The measured SSD was 96.3 cm with the field allocating 148 monitor units. 15 MV photons were dispensed. All treatments were performed with the Vendalize linear accelerator and an isocentric technique. The dose was calculated by Anisotropic Analytic Algorithm. The plan was normalized to deliver 95% of the prescription dose to 95% of the planning target volume. Signed by: Alessandro Forde 01/16/2022 1:47:00 PM
--- NOTE | 2022-01-16 14:44 | ONC FU_ITS ---
Dr. Bonner follow up note Patient: Oneyda Saez Unit #: [id number]: 1965 Dicatated By: Megha Bonner M.D.Date of Visit:Jan 16, 2022 Onc Med Follow-up/Prog Note History of Present Illness: Ms. Oneyda Saez, is a 56-year-old female with no significant past medical history, during her routine follow-up mammogram exam which was done on September 14, 2021, found to have a subtle architectural distortion in the right breast at 1 o'clock position, follow-up ultrasound right breast done on September 21, 2021 shows 1.2 x 1 x 0.7 cm mass at 12 o'clock position, 1 cm from the nipple, no axillary lymphadenopathy, patient underwent ultrasound-guided biopsy right breast mass on October 15, 2021 which confirmed invasive ductal carcinoma grade 1, ER 98% positive, FL 100% positive, Ki-67 5%, HER2/alexandrea Negative, underwent right breast lumpectomy and right axillary sentinel lymph node biopsy on November 12, 2021, final pathology report showed grade 1, 0.92 cm invasive carcinoma with clear surgical margin, no DCIS identified no lymphovascular invasion seen, T1b, 0/3 sentinel lymph nodes positive for metastatic disease, N0, ER 98% positive, FL 100% positive, Ki-67 5% positive and HER-2/alexandrea negative, , Patient completed postlumpectomy radiation therapy on January 16, 2022 Oncotype DX score checked on December 06, 2021 showed recurrence score 19, means low risk and no additional benefit from chemotherapy and risk of distant recurrence at 9 years with hormonal therapy is about 6%. On December 13, 2021, Patient was started on Arimidex 1 mg p.o. daily, for 5 years patient is already on vitamin D and calcium supplement, Patient denies any nipple discharge, denies any overlying skin changes, denies any right axillary lymphadenopathy, denies any new bony pains. Denies any weight loss, denies any headaches., No family history of breast cancer, no history of hormone supplement, menarche at age 17, menopause at age 52. Patient denies smoking or alcohol use Patient has 2 sons, and 2 sisters. Came for follow-up, denies any specific complaints, except mild rash on her right breast due to radiation therapy which she has completed today, no fever or chills, no occasionally hot flashes otherwise tolerating Arimidex along with vitamin D/calcium well Medications: Allergy Relief (5 mg) Tablet Oral daily, calcium Tablet Oral daily, Nasacort Allergy 24HR (55 mcg/act) Aerosol Nasal daily PRN, Probiotic Capsule Oral, Vitamin B 12 Tablet Oral daily, Vitamin D Tablet Oral daily Allergies: Levaquin Review of Systems: Review of Systems is not available for this patient. Vital Signs: Vitals are not available for this patient. Performance Status: 0 - Fully active, able to carry on all predisease activities without restrictions. (ECOG) Physical Examination: Respiratory - Lungs are clear to auscultation, Cardiovascular - Regular rate and rhythm of heart, Gastrointestinal - Soft, bowel sounds present, Extremities - No visible edema. Lab/Imaging: Most recent lab results are not available for this patient. Impression: T1b, N0, MX invasive carcinoma no special type, grade 1 per right breast lumpectomy/sentinel lymph node biopsy done on November 12, 2021, final pathology report showed 0.92cm, grade 1, clear surgical margins, no lymphovascular invasion seen and 0/3 sentinel lymph node positive for metastatic disease, N0, ER 98% positive FL 100% positive Ki-67 5%, HER-2/alexandrea negative, pathological stage T1b, N0, MX stage IA Oncotype DX test done on December 06, 2021 showed recurrence score 19, no additional benefit from chemotherapy, risk of distant metastatic disease at 9-year with hormone therapy is about 6% FSH 51.5, LH 30.7, progesterone 0.096, estradiol 5, all in postmenopausal range, Started on Arimidex 1 mg p.o. daily for 5 years along with vitamin D and calcium supplement on December 13, 2021 Status post, postlumpectomy radiation therapy, completed on January 16, 2022 Invasive ductal carcinoma, grade 1 involving right breast per ultrasound guided biopsy of right breast done on October 15, 2021, ER 98%, FL 100%, Ki-67 5%, HER2/alexandrea pending Mammogram done on September 14, 2021 shows area of subtle architectural distortion in the right breast at 1:00 lesion Ultrasound right breast done on September 21, 2021 shows 0.7 x 1.2 x 1 cm mass at 12 o'clock position, 1 cm from the nipple in the right breast Plan: Discussed with patient regarding her questions or concerns, patient has completed her postlumpectomy radiation therapy today, tolerated well except mild rash on her right breast, which are being followed by radiation oncology. Patient is tolerating adjuvant hormonal therapy with Arimidex along with vitamin D and calcium well, we will give her prescription for Arimidex and then she will return to clinic 3 months with CBC CMP Signed By: Megha Bonner M.D. <<Signature on File>>
--- NOTE | 2022-02-01 08:11 | ONCRAD EPV_ITS ---
Radiation Oncology Follow-Up Note Patient Name: Oneyda Saez Date of : 1965 Date of Service: 02/01/2022 Attending Physician: Alessandro Forde M.D. Oneyda Saez returned to my office this morning for a routinely scheduled post-radiotherapy follow-up appointment. She completed adjuvant right breast radiotherapy in January for the management of a pathologic stage IA (T1bN0) ductal carcinoma of the central portion of the right breast. A partial mastectomy was performed Edinson Cage M.D. on November 12, 2021. The pathology report described a 9 mm, grade 1, ductal carcinoma. A sentinel lymph node biopsy harvested three benign lymph nodes. The breast prognostic profile was positive for estrogen receptor (98%) and progesterone receptor (100%) and negative for HER-2. The Ki-67 was 5%. She was prescribed Arimidex by Megha Bonner M.D. Daily radiotherapy was administered between the dates of December 27, 2021 through January 162021. A prescribed dose of 40 Gy was delivered in 15 fractions encompassing 20 elapsed days. On review of systems, she did not report any breast complaints. On physical examination, the patient weighed 177 lbs and the temperature was 96.6???F. Her blood pressure was 112/65 mmHg. The pulse was 68 bpm and her respiratory rate was 18 breaths per minute. Examination of the left breast did not reveal any significant erythema. Subtle hyperpigmentation was noted. In summary, Ms. Saez returned for a routine post radiotherapy follow-up. There were no sequelae from treatment. She will continue follow-up as scheduled with her medical oncologist. Signed by: Alessandro Forde 02/01/2022 8:10:01 AM
== END 2022-02-02 23:59 | disposition home or self-care (01) ==
LOC: ONCMED 06:39
PROVIDERS: Absent Provider Radiology Radiation Oncology; PCP Family Medicine; Visit Provider Radiology Radiation Oncology
DX: Z51.0 Encounter for antineoplastic radiation therapy (principal); C50.811 Malignant neoplasm of overlapping sites of right female breast; Z17.0 Estrogen receptor positive status [ER+]; Z79.899 Other long term (current) drug therapy
CPT/HCPCS: 77336; 77387; 77412; 99214

== ENCOUNTER 2022-05-01 11:54 | Oncology outpatient (recurring) (ONCR) | payer OTHER, SELFPAY ==
[2022-05-01 12:41] LABS: Basophils # 0.1 10^3/uL (0.0-0.1); Basophils % 1.2 %; Eosinophils # 0.7 10^3/uL (0.0-0.8); Eosinophils % 11.6 %; Hemoglobin 13.7 g/dL (11.5-15.3); Lymphocytes # 1.6 10^3/uL (0.8-4.8); Lymphocytes % 25.7 %; Mean Corpuscular HGB Conc 34.3 g/dL (30.0-36.0); Mean Corpuscular Hemoglobin 30.2 pg (28.0-34.0); Mean Corpuscular Volume 88.3 fl (81-99); Mean Platelet Volume 10.2 fL (7.4-10.4); Monocytes # 0.7 10^3/uL (0.2-0.9); Neutrophils # 2.97 10^3/uL (1.8-7.7); Neutrophils % 49.3 %; Nucleated Red Blood Cells % 0 %; Platelet Count 223 10^3/cmm (130-400); Red Blood Count 4.53 10^6/uL (4.1-5.3); Red Cell Distribution Width 12.2 % (12.1-15.1)
[2022-05-01 13:07] LABS: Alanine Aminotransferase 34 U/L (0-33); Albumin Level 4.6 g/dL (3.5-5.2); Alkaline Phosphatase 113 IU/L (35-105); Anion Gap 12.6 (5-19); Aspartate Amino Transferase 36 U/L (0-32); Blood Urea Nitrogen 13 mg/dL (6-20); Calcium 9.5 mg/dL (8.5-10.5); Carbon Dioxide 28 mmol/L (22-29); Chloride 101 mmol/L (98-107); Globulin 2.9 g/dL (1.3-4.6); Glomerular Filtration Rate 74.7 mL/min (90-130); Glucose 99 mg/dL (65-115); Osmolality Calculated 286 mOsm/kg (285-295); Potassium 3.6 mmol/L (3.5-5.1); Sodium 138 mmol/L (136-145); Total Bilirubin 0.2 mg/dL (0.15-1.2); Total Protein 7.5 g/dL (6.6-8.7)
== END 2022-05-05 23:59 | disposition home or self-care (01) ==
PROVIDERS: PCP Family Medicine; Referring Provider Family Medicine; Visit Provider Internal Medicine Hematology & Oncology
DX: C50.811 Malignant neoplasm of overlapping sites of right female breast (principal)
CPT/HCPCS: 36415; 80053; 85025

== ENCOUNTER 2022-07-22 09:30 | Oncology outpatient (recurring) (ONCR) | payer OTHER, SELFPAY ==
[2022-07-08 12:09] LABS: Alanine Aminotransferase 36 U/L (0-33); Albumin Level 4.4 g/dL (3.5-5.2); Alkaline Phosphatase 118 U/L (35-105); Aspartate Amino Transferase 35 U/L (0-32); Blood Urea Nitrogen 12 mg/dL (6-20); Calcium 9.8 mg/dL (8.5-10.5); Carbon Dioxide 28 mmol/L (22-29); Chloride 102 mmol/L (98-107); Glomerular Filtration Rate 87.2 mL/min (90-130); Glucose 103 mg/dL (65-115); Osmolality Calculated 286 mOsm/kg (285-295); Sodium 138 mmol/L (136-145); Total Bilirubin 0.3 mg/dL (0.15-1.2); Total Protein 7.4 g/dL (6.6-8.7)
== END 2022-08-05 23:59 | disposition home or self-care (01) ==
PROVIDERS: Nurse Practitioner; PCP Family Medicine; Referring Provider Family Medicine; Visit Provider Internal Medicine Hematology & Oncology
DX: C50.811 Malignant neoplasm of overlapping sites of right female breast (principal)
CPT/HCPCS: 36415; 80053; 85025

== ENCOUNTER 2022-08-08 08:04 | Oncology outpatient (recurring) (ONCR) | payer OTHER, SELFPAY ==
[2022-08-08 08:52] LABS: Alanine Aminotransferase 29 U/L (0-33); Albumin Level 4.5 g/dL (3.5-5.2); Alkaline Phosphatase 114 U/L (35-105); Anion Gap 11.8 (5-19); Aspartate Amino Transferase 32 U/L (0-32); Blood Urea Nitrogen 11 mg/dL (6-20); Calcium 9.8 mg/dL (8.5-10.5); Carbon Dioxide 30 mmol/L (22-29); Chloride 101 mmol/L (98-107); Globulin 2.9 g/dL (1.3-4.6); Glomerular Filtration Rate 87.2 mL/min (90-130); Glucose 77 mg/dL (65-115); Osmolality Calculated 286 mOsm/kg (285-295); Potassium 3.8 mmol/L (3.5-5.1); Sodium 139 mmol/L (136-145); Total Bilirubin 0.3 mg/dL (0.15-1.2); Total Protein 7.4 g/dL (6.6-8.7)
== END 2022-09-04 23:59 | disposition home or self-care (01) ==
PROVIDERS: PCP Family Medicine; Referring Provider Family Medicine; Visit Provider Internal Medicine Hematology & Oncology
DX: C50.919 Malignant neoplasm of unspecified site of unspecified female breast (principal)
CPT/HCPCS: 80053

== ENCOUNTER 2022-09-16 11:04 | Outpatient (CLI) | payer OTHER, SELFPAY ==
--- NOTE | 2022-09-16 11:12 | MM_ITS ---
WS: [id number] DIAGNOSTIC BILATERAL DIGITAL BREAST TOMOSYNTHESIS MAMMOGRAPHY WITH CAD HISTORY: Follow-up breast cancer, RIGHT. COMPARISON: 09/21/2021, 09/14/2021 and 09/05/2020 TECHNIQUE: Bilateral craniocaudad, mediolateral oblique, and mediolateral views are submitted with to mosynthesis and SM. Spot compression RIGHT CC and MLO. Computer aided detection utilized. Breast composition: The breasts are heterogeneously dense, which may obscure small masses. Postsurgic al changes are noted in the posterior central RIGHT breast. There is no recurrent mass or distortion out of proportion to the surgery. Benign calcifications in each breast. MM/[place] [id number] IMPRESSION: BI-RADS: 2-Benign FOLLOW UP: 1 Year Follow-up
== END 2022-09-16 11:05 | disposition home or self-care (01) ==
PROVIDERS: PCP Family Medicine; Visit Provider Internal Medicine Hematology & Oncology
DX: Z85.3 Personal history of malignant neoplasm of breast (principal)
CPT/HCPCS: 77062; G0279

== ENCOUNTER 2022-09-19 09:54 | Oncology outpatient (recurring) (ONCR) | payer OTHER, SELFPAY ==
[2022-09-19 10:37] LABS: Alanine Aminotransferase 26 U/L (0-33); Albumin Level 4.5 g/dL (3.5-5.2); Alkaline Phosphatase 119 U/L (35-105); Anion Gap 12.9 (5-19); Aspartate Amino Transferase 31 U/L (0-32); Blood Urea Nitrogen 13 mg/dL (6-20); Carbon Dioxide 29 mmol/L (22-29); Chloride 101 mmol/L (98-107); Globulin 3.5 g/dL (1.3-4.6); Glomerular Filtration Rate 74.5 mL/min (90-130); Glucose 89 mg/dL (65-115); Osmolality Calculated 288 mOsm/kg (285-295); Potassium 3.9 mmol/L (3.5-5.1); Sodium 139 mmol/L (136-145); Total Bilirubin 0.3 mg/dL (0.15-1.2)
== END 2022-10-05 23:59 | disposition home or self-care (01) ==
PROVIDERS: PCP Family Medicine; Referring Provider Family Medicine; Visit Provider Internal Medicine Hematology & Oncology
DX: C50.919 Malignant neoplasm of unspecified site of unspecified female breast (principal)
CPT/HCPCS: 36415; 80053

== ENCOUNTER → 2022-12-26 16:15 | Outpatient (BNVA) | payer OTHER, SELFPAY | PROVIDERS: PCP Family Medicine; Visit Provider Family Medicine | DX: R19.7 Diarrhea, unspecified (principal) | CPT/HCPCS: 87493; 87506 ==

== ENCOUNTER 2023-03-05 11:08 | Oncology outpatient (recurring) (ONCR) | payer OTHER, SELFPAY ==
[2023-02-03 13:33] LABS: Basophils # 0.1 10^3/uL (0.0-0.1); Basophils % 0.8 %; Eosinophils # 0.6 10^3/uL (0.0-0.8); Eosinophils % 8.9 %; Hematocrit 42.4 % (37.0-47.0); Hemoglobin 13.8 g/dL (11.5-15.3); Lymphocytes # 1.4 10^3/uL (0.8-4.8); Lymphocytes % 22.9 %; Mean Corpuscular HGB Conc 32.5 g/dL (30.0-36.0); Mean Corpuscular Volume 92.2 fl (81-99); Monocytes # 0.8 10^3/uL (0.2-0.9); Monocytes % 12.1 %; Neutrophils # 3.43 10^3/uL (1.8-7.7); Neutrophils % 55.1 %; Nucleated Red Blood Cells % 0 %; Platelet Count 229 10^3/cmm (130-400); Red Cell Distribution Width 12.5 % (12.1-15.1); White Blood Count 6.2 10^3/uL (4.0-10.0)
[2023-02-03 13:56] LABS: Alanine Aminotransferase 24 U/L (0-33); Albumin Level 4.5 g/dL (3.5-5.2); Alkaline Phosphatase 118 U/L (35-105); Aspartate Amino Transferase 31 U/L (0-32); Blood Urea Nitrogen 11 mg/dL (6-20); Calcium 9.5 mg/dL (8.5-10.5); Carbon Dioxide 28 mmol/L (22-29); Chloride 104 mmol/L (98-107); Globulin 3.2 g/dL (1.3-4.6); Glomerular Filtration Rate 74.5 mL/min (90-130); Glucose 93 mg/dL (65-115); Osmolality Calculated 291 mOsm/kg (285-295); Sodium 141 mmol/L (136-145); Total Bilirubin 0.2 mg/dL (0.15-1.2); Total Protein 7.7 g/dL (6.6-8.7)
== END 2023-03-05 23:59 | disposition home or self-care (01) ==
PROVIDERS: Nurse Practitioner; PCP Family Medicine; Visit Provider Internal Medicine Hematology & Oncology
DX: Z53.9 Procedure and treatment not carried out, unspecified reason (principal)
CPT/HCPCS: 36415; 80053; 85025

== ENCOUNTER 2023-04-21 14:13 | Oncology outpatient (recurring) (ONCR) | payer OTHER, SELFPAY | END 2023-05-05 23:59 | disposition home or self-care (01) | PROVIDERS: PCP Family Medicine; Visit Provider Internal Medicine Hematology & Oncology | DX: Z53.9 Procedure and treatment not carried out, unspecified reason (principal) ==

== ENCOUNTER 2023-07-16 13:23 | Outpatient (CLI) | payer OTHER, SELFPAY ==
--- NOTE | 2023-07-16 13:30 | XR_ITS ---
WS: [id number] DEXA (DUAL ENERGY X-RAY ABSORPTIOMETRY) Bone mineral density was performed using a [employer] machine. HISTORY: Follow up COMPARISON: None available. Lumbar spine BMD (L1-L4): 0.990 g/cm2 T score: -1.6 Z score: -1.3 Total hip BMD: Left: 0.718 g/cm2. T score: -2.3 Z score: -2.1 Right: 0.711 g/cm2. T score: -2.4 Z score: -2.1 10 year probability of a major osteoporotic fracture is 13.6%. IMPRESSION: OSTEOPENIA based upon the WHO classification for females.
== END 2023-07-16 13:24 | disposition home or self-care (01) ==
PROVIDERS: PCP Family Medicine; Visit Provider Internal Medicine Hematology & Oncology
DX: C50.919 Malignant neoplasm of unspecified site of unspecified female breast (principal); M85.88 Other specified disorders of bone density and structure, other site
CPT/HCPCS: 77080

== ENCOUNTER 2023-07-28 13:27 | Oncology outpatient (recurring) (ONCR) | payer OTHER, SELFPAY ==
[2023-07-28 13:28] VITALS: BP 124/67; PULSE 75; RESP 16; TEMP 37.3; O2SAT 99
[2023-07-28 13:41] LABS: Basophils % 0.5 %; Eosinophils # 0.3 10^3/uL (0.0-0.8); Eosinophils % 4.4 %; Hematocrit 39.9 % (36-47); Lymphocytes # 1.3 10^3/uL (0.8-4.8); Lymphocytes % 22.9 %; Mean Corpuscular HGB Conc 33.3 g/dL (30-55); Mean Corpuscular Hemoglobin 30.4 pg (27-33); Mean Corpuscular Volume 91.3 fl (85-98); Mean Platelet Volume 9.7 fL (7.4-10.4); Monocytes # 0.7 10^3/uL (0.2-0.9); Monocytes % 12.1 %; Neutrophils # 3.51 10^3/uL (1.8-7.7); Neutrophils % 59.9 %; Nucleated Red Blood Cells % 0 %; Platelet Count 243 10^3/cmm (157-399); Red Blood Count 4.37 10^6/uL (3.85-5.65); Red Cell Distribution Width 12.6 % (12.1-15.1); White Blood Count 5.86 10^3/uL (3.29-11.43)
[2023-07-28 13:58] LABS: Alanine Aminotransferase 29 U/L (0-33); Albumin Level 4.3 g/dL (3.5-5.2); Alkaline Phosphatase 122 U/L (35-105); Anion Gap 12.7 (5-19); Aspartate Amino Transferase 36 U/L (0-32); Blood Urea Nitrogen 10 mg/dL (6-20); Calcium 9.1 mg/dL (8.5-10.5); Carbon Dioxide 26 mmol/L (22-29); Chloride 105 mmol/L (98-107); Glomerular Filtration Rate 86.9 mL/min (90-130); Glucose 93 mg/dL (65-115); Osmolality Calculated 289 mOsm/kg (285-295); Potassium 3.7 mmol/L (3.5-5.1); Sodium 140 mmol/L (136-145); Total Bilirubin 0.2 mg/dL (0.15-1.2); Total Protein 7.3 g/dL (6.6-8.7)
[2023-07-28 14:15] LABS: 25 Hydroxy Vitamin D 25 ng/mL (30-100)
== END 2023-08-05 23:59 | disposition home or self-care (01) ==
PROVIDERS: Internal Medicine Medical Oncology; Nurse Practitioner Family; PCP Family Medicine; Visit Provider Internal Medicine Hematology & Oncology
DX: M85.80 Other specified disorders of bone density and structure, unspecified site (principal); Z78.0 Asymptomatic menopausal state; Z79.811 Long term (current) use of aromatase inhibitors; C50.919 Malignant neoplasm of unspecified site of unspecified female breast; C50.811 Malignant neoplasm of overlapping sites of right female breast
CPT/HCPCS: 36415; 80053; 82306; 85025

== ENCOUNTER 2023-09-22 09:07 | Oncology outpatient (recurring) (ONCR) | payer OTHER, SELFPAY ==
[2023-09-22 09:15] VITALS: BP 110/70; PULSE 83; RESP 16; TEMP 36.7; O2SAT 99
[2023-09-22 10:20] LABS: 25 Hydroxy Vitamin D 33 ng/mL (30-100)
== END 2023-10-05 23:59 | disposition home or self-care (01) ==
PROVIDERS: Nurse Practitioner Family; PCP Family Medicine; Visit Provider Internal Medicine Hematology & Oncology
DX: M85.80 Other specified disorders of bone density and structure, unspecified site (principal); Z78.0 Asymptomatic menopausal state; Z79.811 Long term (current) use of aromatase inhibitors; C50.919 Malignant neoplasm of unspecified site of unspecified female breast; C50.811 Malignant neoplasm of overlapping sites of right female breast; Z17.0 Estrogen receptor positive status [ER+]
CPT/HCPCS: 36415; 82306

== ENCOUNTER 2023-09-22 09:50 | Outpatient (CLI) | payer OTHER, SELFPAY ==
--- NOTE | 2023-09-22 09:53 | MM_ITS ---
WS: [id number] DIAGNOSTIC BILATERAL DIGITAL BREAST TOMOSYNTHESIS MAMMOGRAPHY WITH CAD HISTORY: diagnostic surveillance COMPARISON: 09/16/2022, 09/21/2021 TECHNIQUE: Bilateral craniocaudad, mediolateral oblique, and mediolateral views are submitted with to mosynthesis and SM. Computer aided detection utilized. Breast composition: The breasts are heterogeneously dense, which may obscure small masses. Post lumpe ctomy changes RIGHT breast. Benign calcifications in each breast. No recurrent mass. IMPRESSION: MM/[place] [id number] BI-RADS: 2-Benign FOLLOW UP: 1 Year Follow-up
== END 2023-09-22 09:51 | disposition home or self-care (01) ==
LOC: RAD 09:50
PROVIDERS: PCP Family Medicine; Visit Provider Nurse Practitioner Family
DX: R92.8 Other abnormal and inconclusive findings on diagnostic imaging of breast (principal)
CPT/HCPCS: 36415; 77062; 82306; G0279

== ENCOUNTER 2023-10-29 12:44 | Oncology outpatient (recurring) (ONCR) | payer OTHER, SELFPAY ==
[2023-10-29 13:01] VITALS: BP 123/78; PULSE 79; RESP 16; TEMP 36.4; O2SAT 99
[2023-10-29 13:17] LABS: Basophils % 0.3 %; Eosinophils # 0.1 10^3/uL (0.0-0.8); Hematocrit 41.7 % (36-47); Lymphocytes # 1.6 10^3/uL (0.8-4.8); Lymphocytes % 41.4 %; Mean Corpuscular HGB Conc 33.3 g/dL (30-55); Mean Corpuscular Hemoglobin 30.4 pg (27-33); Mean Corpuscular Volume 91.2 fl (85-98); Mean Platelet Volume 9.9 fL (7.4-10.4); Monocytes # 0.4 10^3/uL (0.2-0.9); Monocytes % 10.7 %; Neutrophils % 45.6 %; Nucleated Red Blood Cells % 0 %; Platelet Count 214 10^3/cmm (157-399); Red Blood Count 4.57 10^6/uL (3.85-5.65); Red Cell Distribution Width 12.5 % (12.1-15.1); White Blood Count 3.94 10^3/uL (3.29-11.43)
[2023-10-29 13:38] LABS: Alanine Aminotransferase 22 U/L (0-33); Albumin Level 4.4 g/dL (3.5-5.2); Alkaline Phosphatase 102 U/L (35-105); Anion Gap 12.5 (5-19); Aspartate Amino Transferase 28 U/L (0-32); Blood Urea Nitrogen 14 mg/dL (6-20); Calcium 9.4 mg/dL (8.5-10.5); Carbon Dioxide 28 mmol/L (22-29); Chloride 103 mmol/L (98-107); Globulin 3.6 g/dL (1.3-4.6); Glomerular Filtration Rate 86.6 mL/min (90-130); Glucose 94 mg/dL (65-115); Osmolality Calculated 290 mOsm/kg (285-295); Potassium 3.5 mmol/L (3.5-5.1); Sodium 140 mmol/L (136-145); Total Bilirubin 0.2 mg/dL (0.15-1.2)
== END 2023-11-05 23:59 | disposition home or self-care (01) ==
PROVIDERS: Nurse Practitioner Family; PCP Family Medicine; Visit Provider Internal Medicine Hematology & Oncology
DX: M85.80 Other specified disorders of bone density and structure, unspecified site (principal); Z78.0 Asymptomatic menopausal state; Z79.811 Long term (current) use of aromatase inhibitors; C50.919 Malignant neoplasm of unspecified site of unspecified female breast; C50.811 Malignant neoplasm of overlapping sites of right female breast; Z17.0 Estrogen receptor positive status [ER+]
CPT/HCPCS: 36415; 80053; 85025

== ENCOUNTER 2024-04-19 12:04 | Oncology outpatient (recurring) (ONCR) | payer OTHER, SELFPAY ==
[2024-04-19 13:09] LABS: Basophils % 0.4 %; Eosinophils # 0.1 10^3/uL (0.0-0.8); Eosinophils % 2.1 %; Hematocrit 40.6 % (36-47); Lymphocytes # 1.2 10^3/uL (0.8-4.8); Lymphocytes % 25.6 %; Mean Corpuscular HGB Conc 32.5 g/dL (30-55); Mean Corpuscular Hemoglobin 30.1 pg (27-33); Mean Corpuscular Volume 92.7 fl (85-98); Monocytes # 0.7 10^3/uL (0.2-0.9); Monocytes % 14.2 %; Neutrophils # 2.71 10^3/uL (1.8-7.7); Neutrophils % 57.5 %; Nucleated Red Blood Cells % 0 %; Platelet Count 236 10^3/cmm (157-399); Red Blood Count 4.38 10^6/uL (3.85-5.65); Red Cell Distribution Width 12.5 % (12.1-15.1); White Blood Count 4.72 10^3/uL (3.29-11.43)
[2024-04-19 13:30] LABS: Alanine Aminotransferase 28 U/L (0-33); Albumin Level 4.6 g/dL (3.5-5.2); Alkaline Phosphatase 125 U/L (35-105); Aspartate Amino Transferase 35 U/L (0-32); Blood Urea Nitrogen 18 mg/dL (6-20); Calcium 9.7 mg/dL (8.5-10.5); Carbon Dioxide 28 mmol/L (22-29); Chloride 104 mmol/L (98-107); Globulin 3.1 g/dL (1.3-4.6); Glomerular Filtration Rate 86.6 mL/min (90-130); Glucose 98 mg/dL (65-115); Osmolality Calculated 294 mOsm/kg (285-295); Sodium 141 mmol/L (136-145); Total Bilirubin 0.2 mg/dL (0.15-1.2); Total Protein 7.7 g/dL (6.6-8.7)
[2024-04-19 15:51] LABS: Thyroid Stimulating Hormone 3.44 uIU/mL (0.27-4.20)
== END 2024-05-05 23:59 | disposition home or self-care (01) ==
PROVIDERS: Nurse Practitioner Family; PCP Family Medicine; Visit Provider Internal Medicine Medical Oncology
DX: C50.919 Malignant neoplasm of unspecified site of unspecified female breast; R53.83 Other fatigue
CPT/HCPCS: 36415; 80053; 84443; 85025

== ENCOUNTER 2024-09-27 08:42 | Outpatient (CLI) | payer OTHER, SELFPAY ==
--- NOTE | 2024-09-27 09:00 | MM_ITS ---
WS: [email or web address] DIAGNOSTIC BILATERAL DIGITAL BREAST TOMOSYNTHESIS MAMMOGRAPHY WITH CAD HISTORY: Z12.9 - Encounter for screening for malignant neoplasm, history of RIGHT breast cancer. COMPARISON: 09/21/2021, 09/14/2021 TECHNIQUE: Bilateral craniocaudad, mediolateral oblique, and mediolateral views are submitted with to mosynthesis and SM. Computer aided detection utilized. Breast composition: The breasts are heterogeneously dense, which may obscure small masses. Postoperative changes posterior RIGHT breast towards 12:00. There is distortion but no mass. Benign c alcifications in each breast. No suspicious mass or distortion in the LEFT breast. MM/MM diag BI tomosynthesis [id number] IMPRESSION: BI-RADS: 2 - Benign FOLLOW UP: 1 Year Follow-up
== END 2024-09-27 08:43 | disposition home or self-care (01) ==
LOC: RAD 08:43
PROVIDERS: PCP Family Medicine; Visit Provider Family Medicine
DX: C50.211 Malignant neoplasm of upper-inner quadrant of right female breast (principal); R92.333 Mammographic heterogeneous density, bilateral breasts; R92.1 Mammographic calcification found on diagnostic imaging of breast
CPT/HCPCS: 77062; G0279

== ENCOUNTER 2024-10-20 12:03 | Oncology outpatient (recurring) (ONCR) | payer OTHER, SELFPAY ==
[2024-10-20 12:37] LABS: Basophils % 0.8 %; Eosinophils # 0.2 10^3/uL (0.0-0.8); Eosinophils % 3.3 %; Hematocrit 40.6 % (36-47); Lymphocytes # 1.4 10^3/uL (0.8-4.8); Lymphocytes % 29.3 %; Mean Corpuscular HGB Conc 32.8 g/dL (30-55); Mean Corpuscular Hemoglobin 29.8 pg (27-33); Mean Corpuscular Volume 90.8 fl (85-98); Monocytes # 0.5 10^3/uL (0.2-0.9); Monocytes % 10.6 %; Neutrophils # 2.75 10^3/uL (1.8-7.7); Neutrophils % 55.8 %; Nucleated Red Blood Cells % 0 %; Platelet Count 243 10^3/cmm (157-399); Red Blood Count 4.47 10^6/uL (3.85-5.65); Red Cell Distribution Width 12.7 % (12.1-15.1); White Blood Count 4.92 10^3/uL (3.29-11.43)
[2024-10-20 13:01] LABS: Alanine Aminotransferase 26 U/L (0-33); Albumin Level 4.4 g/dL (3.5-5.2); Alkaline Phosphatase 117 U/L (35-105); Anion Gap 11.8 (5-19); Aspartate Amino Transferase 30 U/L (0-32); Blood Urea Nitrogen 18 mg/dL (6-20); Calcium 9.3 mg/dL (8.5-10.5); Carbon Dioxide 28 mmol/L (22-29); Chloride 103 mmol/L (98-107); Creatinine Clr Calc Pharmacy 101.6698; Globulin 3.1 g/dL (1.3-4.6); Glomerular Filtration Rate 86.2 mL/min (90-130); Glucose 98 mg/dL (65-115); Osmolality Calculated 290 mOsm/kg (285-295); Potassium 3.8 mmol/L (3.5-5.1); Sodium 139 mmol/L (136-145); Total Bilirubin 0.3 mg/dL (0.15-1.2); Total Protein 7.5 g/dL (6.6-8.7)
== END 2024-11-05 23:59 | disposition home or self-care (01) ==
PROVIDERS: Nurse Practitioner Family; PCP Family Medicine; Visit Provider Internal Medicine Medical Oncology
DX: C50.811 Malignant neoplasm of overlapping sites of right female breast (principal); R53.83 Other fatigue; Z17.0 Estrogen receptor positive status [ER+]; Z92.3 Personal history of irradiation; Z79.811 Long term (current) use of aromatase inhibitors
CPT/HCPCS: 36415; 80053; 85025

== ENCOUNTER 2025-04-27 11:40 | Oncology outpatient (recurring) (ONCR) | payer OTHER, SELFPAY ==
[2025-04-27 11:56] LABS: Hematocrit 40.9 % (36-47); Hemoglobin 13.40 g/dL (11.27-16.99); Mean Corpuscular HGB Conc 32.8 g/dL (30-55); Mean Corpuscular Hemoglobin 30.3 pg (27-33); Mean Corpuscular Volume 92.5 fl (85-98); Nucleated Red Blood Cells % 0 %; Platelet Count 225 10^3/cmm (157-399); Red Blood Count 4.42 10^6/uL (3.85-5.65); White Blood Count 6.20 10^3/uL (3.29-11.43)
[2025-04-27 12:13] LABS: Alanine Aminotransferase 26 U/L (0-33); Albumin Level 4.5 g/dL (3.5-5.2); Alkaline Phosphatase 109 U/L (35-105); Anion Gap 15.3 (5-19); Aspartate Amino Transferase 32 U/L (0-32); Blood Urea Nitrogen 16 mg/dL (6-20); Calcium 9.7 mg/dL (8.5-10.5); Carbon Dioxide 27 mmol/L (22-29); Chloride 103 mmol/L (98-107); Globulin 3.1 g/dL (1.3-4.6); Glucose 91 mg/dL (65-115); Osmolality Calculated 293 mOsm/kg (285-295); Potassium 4.3 mmol/L (3.5-5.1); Sodium 141 mmol/L (136-145); Total Protein 7.6 g/dL (6.6-8.7)
== END 2025-05-05 23:59 | disposition home or self-care (01) ==
LOC: ONCMED 11:41
PROVIDERS: PCP Family Medicine; Visit Provider Internal Medicine
DX: C50.919 Malignant neoplasm of unspecified site of unspecified female breast (principal); R53.83 Other fatigue
CPT/HCPCS: 36415; 80053; 82306; 83615; 85025

== ENCOUNTER 2025-05-25 12:52 | Oncology outpatient (recurring) (ONCR) | payer OTHER, SELFPAY | END 2025-06-05 23:59 | disposition home or self-care (01) | PROVIDERS: PCP Family Medicine; Visit Provider Internal Medicine | DX: Z53.9 Procedure and treatment not carried out, unspecified reason (principal) ==

== ENCOUNTER 2025-07-29 14:00 | Oncology outpatient (recurring) (ONCR) | payer OTHER, SELFPAY ==
[2025-07-20 13:24] LABS: Hematocrit 39.5 % (36-47); Hemoglobin 13.00 g/dL (11.27-16.99); Mean Corpuscular HGB Conc 32.9 g/dL (30-55); Mean Corpuscular Hemoglobin 30.2 pg (27-33); Mean Corpuscular Volume 91.6 fl (85-98); Nucleated Red Blood Cells % 0 %; Platelet Count 246 10^3/cmm (157-399); Red Blood Count 4.31 10^6/uL (3.85-5.65); White Blood Count 5.86 10^3/uL (3.29-11.43)
[2025-07-20 13:51] LABS: Alanine Aminotransferase 35 U/L (0-33); Albumin Level 4.4 g/dL (3.5-5.2); Alkaline Phosphatase 114 U/L (35-105); Anion Gap 13.1 (5-19); Aspartate Amino Transferase 38 U/L (0-32); Blood Urea Nitrogen 15 mg/dL (6-20); Calcium 9.6 mg/dL (8.5-10.5); Carbon Dioxide 28 mmol/L (22-29); Chloride 104 mmol/L (98-107); Creatinine Clr Calc Pharmacy 89.1835; Globulin 3.1 g/dL (1.3-4.6); Glucose 94 mg/dL (65-115); Osmolality Calculated 293 mOsm/kg (285-295); Potassium 4.1 mmol/L (3.5-5.1); Sodium 141 mmol/L (136-145); Total Protein 7.5 g/dL (6.6-8.7)
--- NOTE | 2025-07-29 14:00 | XR_ITS ---
WS: [id number] SCREENING DEXA SCAN [employer] ([employer]) CLINICAL INFORMATION: compare to COMPARISON: 2022 FINDINGS: The L1-L4 bone mineral density measures 0.958 g/cm2. This corresponds to a T score score of -1.8 and Z score of -1.5. Left femoral neck bone mineral density measures 0.716 g/cm2. This corresponds to a T score of -2.3 and Z score of -2.0. Right femoral neck bone mineral density measures 0.721 g/cm2. This corresponds to a T score -2.3of and Z score of -2.0. Mean femoral neck bone mineral density measures 0.718 g/cm2. This corresponds to a T score of -2.3 and Z score of -2.0. XR/XR DEXA axial skeleton* [id number] IMPRESSION: Osteopenia lumbar spine. Osteopenia femoral necks approaching osteoporosis. Patient's FRAX calculated 10 year probability for major osteoporotic fracture i s 9.0% and osteoporotic hip fracture is 1.2%. Bone density lumbar spine decreased -3.2% Bone density femoral necks increased 0.4%
== END 2025-08-05 23:59 | disposition home or self-care (01) ==
LOC: RAD 07-30 → ONCMED 08-01 09:25
PROVIDERS: PCP Family Medicine; Visit Provider Nurse Practitioner
DX: Z78.0 Asymptomatic menopausal state; Z79.811 Long term (current) use of aromatase inhibitors; M85.89 Other specified disorders of bone density and structure, multiple sites; Z53.9 Procedure and treatment not carried out, unspecified reason
CPT/HCPCS: 36415; 77080; 80053; 82306; 83615; 85025